=== PATIENT | female | born 1935 | race Caucasian/White ===

== ENCOUNTER 2018-04-04 05:32 | Inpatient (IN) | payer OTHER ==
[2018-03-11 12:42] LABS: URINE BILIRUBIN NEGATIVE (Negative); URINE BLOOD NEGATIVE (Negative); URINE CLARITY CLEAR; URINE COLOR YELLOW; URINE GLUCOSE-RANDOM* NEGATIVE (Negative); URINE KETONES NEGATIVE (Negative); URINE LEUKOCYTES-REFLEX NEGATIVE (Negative); URINE NITRITE-REFLEX NEGATIVE (Negative); URINE PROTEIN (DIPSTICK) NEGATIVE (Negative); URINE UROBILINOGEN 0.2 E.U./dl (0.2-1.0)
[2018-03-11 12:43] LABS: HEMATOCRIT 38.9 % (42.0-52.0); HEMOGLOBIN 13.2 gm/dL (14.0-18.0); MCH 30.7 pg (26.0-34.0); MCHC 33.8 g/dL (28.0-37.0); RBC 4.28 mil/uL (4.50-6.00); RDW 12.5 % (10.5-14.5); WBC 4.5 thou/uL (4.0-11.0)
[2018-03-11 12:57] LABS: PROTIME 10.3 Seconds (9.3-11.4)
[2018-03-11 13:11] LABS: ALBUMIN 4.2 g/dL (3.4-5.0); CALCIUM 9.7 mg/dL (8.5-10.1); CREATININE 0.7 mg/dL (0.7-1.3); POTASSIUM 4.2 mmol/L (3.5-5.1)
[~2018-04-04] VITALS: Ht 152.4 cm; Wt 57.6 kg
--- NOTE | ~2018-04-04 | O ---
[facility] [place] [address] OPERATIVE REPORT Name: MARLY NUÑEZ Room #: 418-P [facility] IN M.R.#: [id number] Admission: 04/04/18 Attend Phys: Justin Smith MD Discharge: Date of : 39 Report #: [id number] THIS REPORT FOR: //name// CC: Justin Smith [facility] DATE OF SERVICE: 04/04/2018 PREOPERATIVE DIAGNOSIS: End-stage degenerative osteoarthritis, right hip. POSTOPERATIVE DIAGNOSIS: End-stage degenerative osteoarthritis, right hip. PROCEDURE: Right total hip arthroplasty. SURGEON: Justin Smith MD. INDICATIONS: This slender, active, fit fully independent 82-year-old female presents with progressive right hip pain. Clinical exam and x-rays confirm rather severe end-stage degenerative osteoarthritis with complete loss of joint space. She and family have discussed treatment options and elected to go ahead with right total hip arthroplasty. DESCRIPTION OF PROCEDURE: The patient was taken to the operating room where she was placed under general anesthesia. Prophylactic intravenous antibiotics were administered. She was turned to the left lateral decubitus position. The right hip, thigh and leg were meticulously prepped and draped. A slightly curving skin incision was made centered over the greater trochanter. This was carried through subcutaneous tissues and fascia exposing the posterior aspect of the hip joint. The short external rotators and capsule were taken down and preserved and tagged with several #1 Tevdek sutures. The hip was dislocated and marked degenerative change on both the femoral head and acetabulum was noted. A femoral neck osteotomy was performed. The canal was then prepared using reamers and hand broaches. The [employer] system was utilized and the size 13 press-fit stem seemed to fit nicely. The calcar was trimmed to an appropriate level. The attention was then directed to the acetabulum. Good exposure was established. The acetabulum was sequentially reamed, gradually advancing to a 54 mm hemispherical reamer. A 54 mm 3-hole hemispherical shell was then placed. This was positioned in alignment with her true acetabulum, which placed this at about 20 degrees of anteversion and about 45 degrees off vertical. It seated nicely and appeared to be secure. In addition, two screws were placed through the upper aspect of the shell engaging good periacetabular bone adding to overall stability. A 36-mm liner was then inserted, placing the 20-degree elevated rim at about the 10 o'clock posterior position. This also seated nicely and appeared to be secure. The permanent femoral stem was then inserted using the [employer] Synergy size 13 high offset stem. This seated nicely and appeared to be secure and in good position with about 15-[address] degrees [address] [address] OPERATIVE REPORT Name: MARLY NUÑEZ Room #: 418-P [facility] IN .R.#: [id number] Admission: 04/04/18 Attend Phys: Justin Smith MD Discharge: Date of : 39 Report #: [id number] anteversion. A trial reduction was performed and a +4 mm neck length fit nicely. This resulted in good range of motion, stability and leg length. The permanent 36 mm head using a +4 mm neck length and a cobalt chrome head style was then selected. This was impacted on the Szymanski taper. The hip was reduced. Alignment, range of motion, stability and leg lengths were once again assessed and felt to be satisfactory. The entire wound was copiously irrigated. Good hemostasis was confirmed. The capsule and short external rotators were then repaired using the #1 Tevdek sutures passed through drill holes in the greater trochanter. This resulted in additional satisfactory hip stability and did not seem to impair range of motion. A single Hemovac was left deep in the wound exiting through a separate stab incision. The fascia was then closed with multiple #1 Vicryl sutures. The subcutaneous tissues were closed with 0 Monocryl. The skin was closed with skin jacob. A sterile dressing was applied. The patient was awakened and returned to recovery room in good condition. <ELECTRONICALLY SIGNED> By: Justin Smith MD 04/05/18 [id number] [id number] Justin Smith MD /nt
--- NOTE | ~2018-04-04 | HC ---
[facility] [place] [address] [address] CONSULTATION Name: MARLY NUÑEZ Room #: 418-P [facility] IN .R.#: [id number] Admission: 04/04/18 Attend Phys: Justin Smith MD Discharge: Date of : 39 Report #: [id number] THIS REPORT FOR: //name// CC: Justin Ingram DATE OF SERVICE: 04/04/2018 Consult has been requested by Dr. Smith for management of AFib, hypertension. HISTORY OF PRESENT ILLNESS: The patient is an 82-year-old female with history of atrial fibrillation, hypertension, on Eliquis, who was admitted today for elective right total hip arthroplasty. Consult has been requested for hypertension and AFib. The patient is seen postoperatively in the room. Pain is fairly controlled. She received a dose of morphine at 1:00 p.m. and also received a dose of hydrocodone. The patient denies any chest pain, no dizziness, no shortness of breath. The patient denies any nausea or vomiting. PAST MEDICAL HISTORY: Significant for AFib, hypertension, hyperlipidemia, appendectomy, D and C, tubal ligation, breast biopsy, lumbar laminectomy, colonoscopy, bilateral cataract surgery. SOCIAL HISTORY: No smoking, alcohol abuse, or illicit drug abuse. She is an ex-smoker, stopped smoking about 40 years ago. FAMILY HISTORY: Significant for hypertension. ALLERGIES: SHE IS ALLERGIC TO ADHESIVE TAPE, AMOXICILLIN AND CRESTOR. HOME MEDICATIONS: Reviewed. REVIEW OF SYSTEMS: CONSTITUTIONAL: No recent weight loss or weight gain. No fever or chills. EYES: No change in vision. THROAT: Denies any sore throat. CARDIOVASCULAR: No chest pain, dizziness, palpitations. RESPIRATORY: No cough or expectoration. GASTROINTESTINAL: No nausea or vomiting. GENITOURINARY: No dysuria or hematuria. NEUROLOGIC: No focal numbness or weakness of the extremities. PSYCHIATRIC: No anxiety or depression. The 12-point review of system is negative other than the positive and the negative dictated in the history of present illness and the review of system. PHYSICAL EXAMINATION: [facility] [address] [place] [address] CONSULTATION Name: JOAQUINMARLY Room #: 418-P [facility] IN ..#: [id number] Admission: 04/04/18 Attend Phys: Justin Smith MD Discharge: Date of : 39 Report #: [id number] VITAL SIGNS: Blood pressure reviewed. Blood pressure 150/60, heart rate of 60 per minute, afebrile. GENERAL: The patient is awake and alert, not in acute respiratory distress. EYES: Pupils equal, reactive to light, nonicteric conjunctivae. THROAT: Appears normal. NECK: Supple, no JVD, no bruit, no lymphadenopathy. CARDIOVASCULAR SYSTEM: S1, S2, negative S3, no murmur. CHEST: Bilateral air entry present, clear to auscultation. ABDOMEN: Soft, bowel sounds present, no mass, no organomegaly, no tenderness. PERIPHERY: No pedal edema. No calf tenderness. NEUROLOGICAL: Did not test on the lower extremity. LABORATORY DATA: Reviewed. Labs are done on 03/11/2018. Her white count was 4.5. Normal hemoglobin, hematocrit and platelets. BMP on 03/11/2018 showed a sodium of 132, BUN and creatinine are 13 and 0.7. ASSESSMENT AND PLAN: 1. Atrial fibrillation. Rate is presently controlled. The patient will be continued on her current home medication, which includes sotalol. The patient was on Eliquis at home, which was discontinued a few days prior to surgery. We will restart her back on Eliquis if okay with Dr. Smith in the morning. 2. Hypertension. The patient will be continued on current home medication and monitor. 3. Insomnia. I have ordered p.r.n. Ambien for sleep. 4. Deep venous thrombosis prophylaxis. The patient will be presently started on Lovenox by Orthopedic Surgery. We will discontinue Lovenox when the Eliquis is started. 5. Pain control. The patient is presently on hydrocodone and morphine. 6. We will repeat labs in the morning. Treatment plan has been explained to the patient and the family at bedside in detail. <ELECTRONICALLY SIGNED> By: Todd Bocanegra MD 04/05/181909 [id number] Todd Bocanegra MD /nt
--- NOTE | ~2018-04-04 | H ---
[facility] [address] [place] [address] HISTORY AND PHYSICAL Name: AMRLY NUÑEZ Room #: 418-P ADM IN M.R.#: [id number] Admission: 04/04/18 Attend Phys: Justin Smith MD Discharge: Date of : 39 Report #: [id number] THIS REPORT FOR: //name// [facility]: [facility] DATE OF SERVICE: 04/04/2018 NO DICTATION <ELECTRONICALLY SIGNED> By: Todd Bocanegra MD 04/05/18 [id number] Todd Bocanegra MD /nt
[~2018-04-04 05:32] MED LIST: ALOE VERA237 ML PO; CENTRUM SILVER1 EAC4 PO; CLONAZEPAM 1 MG1 M1 PO; CO Q-10100 MG PO; COZAAR100 MG PO; ELIQUIS5 MG PO; GLUCOSAMINE &1 EAC1 PO; LIPITOR 20 MG T20 M1 PO; MAGOX 400400 MG PO; MYRBETRIQ50 MG PO; NEURONTIN 300300 M1 PO; NORVASC5 MG PO; SORINE 80 MG TA80 M1 PO; TRAMADOL 50 MG50 MG PO; TRAZODONE HCL50 MG PO; TURMERIC500 M2 PO; VITAMIN B-121000 MC3 PO; VITAMIN D-32000 UNIT PO
[2018-04-04 07:20] VITALS: BP 138/68
[2018-04-04 11:30] VITALS: BP 154/68
[2018-04-04 16:42] VITALS: BP 154/68
[2018-04-04 20:18] VITALS: BP 119/57
[2018-04-04 23:46] VITALS: BP 115/53
[2018-04-05 03:40] VITALS: BP 101/46; BP 121/47
[2018-04-05 06:11] LABS: HEMATOCRIT 29.8 % (37.0-47.0); HEMOGLOBIN 10.3 gm/dL (12.0-15.0); MCH 31.2 pg (26.0-34.0); MCHC 34.4 g/dL (28.0-37.0); MCV 90.7 fL (80.0-100.0); RBC 3.29 mil/uL (4.20-5.00); RDW 12.2 % (10.5-14.5); WBC 7.2 thou/uL (4.0-11.0)
[2018-04-05 06:20] LABS: CALCIUM 8.2 mg/dL (8.5-10.1); CREATININE 0.7 mg/dL (0.6-1.0); POTASSIUM 3.6 mmol/L (3.5-5.1)
[2018-04-05 16:27] VITALS: BP 154/68
[2018-04-05 19:26] VITALS: BP 139/56
[2018-04-06 03:55] VITALS: BP 121/49
[2018-04-06 04:25] LABS: ABSOLUTE NEUTROPHILS 6.1 thou/uL (1.4-8.2); BASOPHILS 0.3 % (0.0-2.0); EOSINOPHILS 0.2 % (0.0-3.0); HEMATOCRIT 28.3 % (37.0-47.0); HEMOGLOBIN 9.9 gm/dL (12.0-15.0); LYMPHOCYTES 17.9 % (24.0-44.0); MCH 31.4 pg (26.0-34.0); MCHC 34.9 g/dL (28.0-37.0); MCV 89.9 fL (80.0-100.0); MONOCYTES 11.6 % (1.0-8.0); PLATELET COUNT 182 thou/uL (150-400); RBC 3.14 mil/uL (4.20-5.00); RDW 11.9 % (10.5-14.5); WBC 8.7 thou/uL (4.0-11.0)
[2018-04-06 04:34] LABS: CALCIUM 7.8 mg/dL (8.5-10.1); CREATININE 0.5 mg/dL (0.6-1.0); POTASSIUM 3.6 mmol/L (3.5-5.1)
[2018-04-06 08:24] VITALS: BP 122/48
[2018-04-06 09:48] LABS: HEMATOCRIT 27.4 % (37.0-47.0); HEMOGLOBIN 9.6 gm/dL (12.0-15.0); MCH 31.5 pg (26.0-34.0); MCV 90.1 fL (80.0-100.0); RBC 3.04 mil/uL (4.20-5.00); RDW 12.2 % (10.5-14.5); WBC 8.2 thou/uL (4.0-11.0)
[2018-04-06 16:35] VITALS: BP 122/50
[2018-04-06 19:45] VITALS: BP 129/47
[2018-04-07 02:05] VITALS: BP 126/56
[2018-04-07 05:43] LABS: HEMATOCRIT 27.2 % (37.0-47.0); HEMOGLOBIN 9.6 gm/dL (12.0-15.0); MCH 31.8 pg (26.0-34.0); MCHC 35.2 g/dL (28.0-37.0); MCV 90.3 fL (80.0-100.0); RBC 3.02 mil/uL (4.20-5.00); RDW 12.1 % (10.5-14.5); WBC 7.5 thou/uL (4.0-11.0)
[2018-04-07 06:29] VITALS: BP 110/47
[2018-04-07 08:00] VITALS: BP 117/40
[2018-04-07 19:29] VITALS: BP 123/45
[2018-04-08 05:03] VITALS: BP 112/44
[2018-04-08 07:35] VITALS: BP 117/41
[2018-04-08 10:00] VITALS: BP 154/68
== END 2018-04-08 16:30 | disposition home health service (06) | DRG 470 ==
LOC: EDSEX → PRE 05:32 → TBA 06:15 → 4E 06:15 → PRE 07:58 → 4E 08:12 → PRE 08:34 → 4E 04-08 16:30
PROVIDERS: Hospitalist; Internal Medicine; Orthopaedic Surgery
PROC: 0SR901A Replacement of Right Hip Joint with Metal Synthetic Substitute, Uncemented, Open Approach (ICD-10-PCS; principal; 2018-04-05)
DX: M16.11 Unilateral primary osteoarthritis, right hip (principal); I48.91 Unspecified atrial fibrillation; I10 Essential (primary) hypertension; E78.5 Hyperlipidemia, unspecified; D64.9 Anemia, unspecified; G47.00 Insomnia, unspecified; Z90.49 Acquired absence of other specified parts of digestive tract; Z98.42 Cataract extraction status, left eye; Z98.41 Cataract extraction status, right eye; Z87.891 Personal history of nicotine dependence; Z79.01 Long term (current) use of anticoagulants; Z79.899 Other long term (current) drug therapy; Z88.8 Allergy status to other drugs, medicaments and biological substances; Z91.048 Other nonmedicinal substance allergy status; Z82.49 Family history of ischemic heart disease and other diseases of the circulatory system
CPT/HCPCS: 10783; 50010; 50101; 50382; 50414; 51412; 51771; 53000; 56521; 56525; 56527; 62110; 62900; 70005